=== PATIENT | female | born 1945 | race Caucasian/White ===

== ENCOUNTER 2016-09-26 20:45 | Outpatient (CLI) | payer MEDICARE | END 2016-09-27 06:35 | disposition home or self-care (01) | LOC: SLEEP 20:45 | PROVIDERS: ATTEND Nurse Practitioner Family | DX: G47.50 Parasomnia, unspecified (principal); G47.10 Hypersomnia, unspecified | CPT/HCPCS: 95810 ==

== ENCOUNTER → 2018-06-30 | Outpatient (CLI) | payer MEDICARE, OTHER | LOC: CARD 08:22 | PROVIDERS: ATTEND Internal Medicine Cardiovascular Disease | DX: I51.81 Takotsubo syndrome (principal) | CPT/HCPCS: 93306 ==

== ENCOUNTER 2019-10-18 23:00 | Inpatient (IN) | payer MEDICARE, OTHER ==
[~2019-10-18] VITALS: Ht 160 cm; Wt 75.7 kg
[2019-10-19] VITALS (19 sets, daily range): BP systolic 88–178; BP diastolic 48–100
--- NOTE | 2019-10-19 00:50 | NUR ---
CARDIZEM RUNNING FROM EMS AT 10MG/HR AND AMIO RUNNING AT 33 ML/HR ALSO CONTINUED FROM EMS.
--- NOTE | 2019-10-19 00:50 | NUR ---
RITA FRANCISCACRYSTAL admitted to room CU11-1, with an admitting diagnosis of A-FIB WITH RVR , on 10/19/19 from [facility] via EMS, accompanied by EMS STAFF. RITA NELSON introduced to surroundings, call light, bed controls, phone, TV, temperature control, lights, meal times, smoking policy, visitor policy, side rail policy, bathrooms and showers. Patient Rights given to patient in the handbook.RITA NELSON verbalizes understanding that [facility] is not responsible for the loss or damage to any personal effects or valuables that are kept in the patients posession during their hospitalization. RITA NELSON verbalizes understanding of Interdisciplinary Patient Education. Patient and/or family were informed about the Rapid Response Team and its purpose.
[2019-10-19] MEDS ORDERED: diphenhydrAMINE 25 MG TAB (BENADRYL) PO PRN (01:45)
[2019-10-19] MEDS ORDERED: fentaNYL INJECTION 100 MCG/2 ML AMP IVP PRN (01:45)
[2019-10-19] MEDS ORDERED: polyethylene glycoL POWDER 17 GM (MIRALAX) PACK PO PRN (01:45)
[2019-10-19] MEDS ORDERED: ACETAMINOPHEN 325 MG TABLET PO PRN (01:45)
[2019-10-19] MEDS ORDERED: guaiFENesin/DM (ROBITUSSIN DM) 10 ML UDC PO PRN (01:45)
[2019-10-19] MEDS ORDERED: ONDANSETRON 4 MG/2 ML (SDV) Z0FRAN IVP PRN (01:45)
[2019-10-19] MEDS ORDERED: MELATONIN 3 MG TABLET PO PRN (01:45)
[2019-10-19] MEDS ORDERED: dilTIAZem DRIP PRE-MIX 125 ML IV SCH (01:45)
[2019-10-19] MEDS ORDERED: DOCUSATE SODIUM 100 MG (COLACE) CAP PO PRN (01:45)
[2019-10-19] MEDS ORDERED: ALPRAZolam 0.25 MG (XANAX) TAB PO PRN (01:45)
[2019-10-19] MEDS ORDERED: AMIODARONE INJECTION 450 MG in D5W IV SOLUTION (EXCEL) 250 ML IV SCH (01:45)
--- NOTE | 2019-10-19 02:30 | NUR ---
0230-TURNED CARDIZEM OFF AT THIS TIME D/T BRADYCARDIA. HEART RATE IN THE 50'S. AMIO REMAINS RUNNING AT 33 ML/HR 030-CALLED DR. SHAW AND INFORMED HIM THAT CARDIZEM HAD ALREADY BEEN TURNED OFF AND THAT PATIENT'S HEART RATE WAS DROPPING INTO THE 40'S WITH LAST BP OF 94/50 AND THAT PATIENT'S CURRENT RHYTHM IS SINUS ARRHYTHMIA. RECEIVED ORDER TO D/C AMIO ALSO.
[2019-10-19 03:27] LABS: BASOPHILS % (AUTO) 1 % (0-10); EOSINOPHILS # (AUTO) 0.3 10^3/uL (0.0-0.3); EOSINOPHILS % (AUTO) 4 % (0-10); HEMATOCRIT 38 % (35-52); HEMOGLOBIN 12.6 G/DL (11.5-16.0); LYMPHOCYTES # (AUTO) 2.6 X 10^3 (1.0-4.0); LYMPHOCYTES % (AUTO) 33 % (12-44); MEAN CORPUSCULAR HEMOGLOBIN 31 PG (25-34); MEAN CORPUSCULAR HGB CONC 33 G/DL (32-36); MEAN CORPUSCULAR VOLUME 93 FL (80-99); MEAN PLATELET VOLUME 12.1 FL (7.4-10.4); MONOCYTES # (AUTO) 0.8 X 10^3 (0.0-1.0); MONOCYTES % (AUTO) 10 % (0-12); NEUTROPHILS # (AUTO) 4.1 X 10^3 (1.8-7.8); NEUTROPHILS % (AUTO) 53 % (42-75); PLATELET COUNT 180 10^3/uL (130-400); RED CELL DISTRIBUTION WIDTH 13.8 % (10.0-14.5); WHITE BLOOD COUNT 7.8 10^3/uL (4.3-11.0)
[2019-10-19 03:49] LABS: BUN/CREATININE RATIO 18; CALCIUM 8.8 MG/DL (8.5-10.1); CARBON DIOXIDE 20 MMOL/L (21-32); CHLORIDE 108 MMOL/L (98-107); CREATININE SERUM 0.85 MG/DL (0.60-1.30); GFR ESTIMATED > 60; GLUCOSE 131 MG/DL (70-105); PHOSPHORUS 4.3 MG/DL (2.3-4.7); POTASSIUM 3.7 MMOL/L (3.6-5.0); SODIUM 141 MMOL/L (135-145)
--- NOTE | 2019-10-19 05:20 | Pulmonary Consultation ---
History of Present Illness History of Present Illness Date Seen by Provider: Oct 19, 2019 Time Seen by Provider: 05:19 Date of Admission Allergies and Home Medications Allergies Coded Allergies: No Known Drug Allergies (Unverified , 10/19/19) Past Gsineiz-Nrntue-Edczte Hx Patient Social History Alcohol Use: Denies Use Recreational Drug Use: No Smoking Status: Never a Smoker Recent Foreign Travel: No Contact w/Someone Who Travel: No Recent Infectious Disease Expo: No Recent Hopitalizations: No Seasonal Allergies Seasonal Allergies: No Past Medical History Surgeries: Yes Respiratory: No Cardiac: Yes Neurological: No Genitourinary: No Gastrointestinal: Yes Hiatal Hernia Musculoskeletal: No Endocrine: No HEENT: No Cancer: No Psychosocial: No Integumentary: No Blood Disorders: No Family Medical History Cardiovascular disease 19 FATHER G8 SISTER Hypercholesterolemia 19 FATHER G8 SISTER Hypertension 19 FATHER G8 SISTER Review of Systems Time Seen by Provider: 05:20 Sepsis Event Evaluation Height, Weight, BMI Height: '" Weight: lbs. oz. kg; 29.57 BMI Method: Exam Exam Vital Signs Date Time Temp Pulse Resp B/P (MAP) Pulse Ox O2 Delivery O2 Flow Rate FiO2 10/19/19 05:00 48 94/53 (67) 97 Room Air 10/19/19 04:00 50 12 102/71 (81) 94 Room Air 10/19/19 03:30 48 33 105/62 (76) 97 Room Air 10/19/19 03:00 50 12 94/50 (65) 94 Room Air 10/19/19 02:45 51 11 88/53 (65) 95 Room Air 10/19/19 02:30 56 14 94/52 (66) 94 Room Air 10/19/19 02:15 54 14 96/61 (73) 94 Room Air 10/19/19 02:00 52 12 99/48 (65) 94 Room Air 10/19/19 01:45 61 16 105/79 (88) 94 Room Air 10/19/19 01:30 64 15 102/59 (73) 93 Room Air 10/19/19 01:18 72 14 113/69 (84) 96 Room Air 10/19/19 00:58 36.5 63 113/55 (74) Room Air 10/19/19 00:50 95 Room Air I & O 10/19/19 07:00 Intake Total 0 ml Output Total 350 ml Balance -350 ml Height & Weight Height: '" Weight: lbs. oz. kg; 29.57 BMI Method: Results Lab Laboratory Tests 10/19/19 03:06 Assessment/Plan Assessment/Plan Afib RVR - No sinus bradycardia -Cardizem and ammio gtt are off -Cardiology is following ANGELIKA BENDER DO Oct 19, 2019 05:20
--- NOTE | 2019-10-19 05:56 | Diagnostic Imaging Report ---
EXAMINATION: Portable erect AP chest at 3:43 AM INDICATION: Atrial fibrillation The heart size is within normal limits and stable when compared to 10/18/2019. The lungs are clear. There is no evidence for failure, pneumonia or for a pleural effusion. The mediastinum is not widened. The osseous structures are intact. IMPRESSION: Stable chest. There has been no adverse change since the prior exam. Dictated by: Dictated on workstation # [id number]
[2019-10-19] MEDS ORDERED: POTASSIUM CL 10MEQ/50ML IVPB 50 ML IV SCH (06:00)
[2019-10-19] MEDS ORDERED: MAGNESIUM 1 GM/100 ML IVPB 100 ML IV SCH (06:00)
[2019-10-19] MEDS ORDERED: KCL 20 MEQ TAB (K-DUR) PO SCH (06:00)
[2019-10-19] MEDS ORDERED: APIXABAN 5 MG (ELIQUIS) TABLET PO SCH (09:00)
[2019-10-19] MEDS ORDERED: REGADENOSON 0.4 MG/5 ML SYR (LEXISCAN) IV ONE ×2 (10:15→10:59)
--- NOTE | 2019-10-19 10:23 | Consultation-Cardiology ---
HPI-Cardiology Cardiology Consultation: Date of Consultation 10/19/19 Date of Admission Attending Physician Mela Martinez DO Admitting Physician Rafa Ruelas DO Consulting Physician Linda PERALES MD HPI: Time Seen by a Provider: 10:00 Chief Complaint: Palpitations This is a 73-year-old lady who presented to [facility] with complains of palpitations and shortness of breath. Palpitations started approximately 9 p.m. last night. Initial EKG showed atrial fibrillation with rapid ventricular rate. She was started on Cardizem infusion. She was given Eliquis 5 mg twice a day. I spoke to the health care provider at [facility] last night and advised starting amiodarone infusion. The patient was subsequently transferred to our hospital. 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 The patient denies any past medical history. She has had and hysterectomy. No cardiac history. Denies diabetes and hypertension. Denies active smoking. Father had coronary artery disease. She's been having brief palpitations for a few weeks. She did not seek medical attention. No other past medical history. Review of Systems-Cardiology Review of Systems Constitutional: As described under HPI; No As described under HPI, No no symptoms reported, No chills, No fever, No lightheadedness Eyes: No As described under HPI, No no symptoms reported, No blindness, No blurred vision, No contact lenses, No drainage, No decreased acuity, No foreign body sensation, No pain, No vision change Ears/Nose/Throat: No As described under HPI, No no symptoms reported, No chronic hearing loss, No ear discharge, No ear pain, No nasal drainage, No ulcerations Respiratory: No no symptoms reported; As described under HPI; No As described under HPI, No cough, No orthopnea; shortness of breath; No SOB with excertion Cardiovascular: No no symptoms reported; As described under HPI; No As described under HPI, No chest pain, No edema, No irregular heart rate, No lightheadedness; palpitations Gastrointestinal: No no symptoms reported, No As described under HPI, No abdomen distended, No abdominal pain, No blood streaked bowels, No constipation, No diarrhea, No nausea, No vomiting, No stool coloration changes Genitourinary: No As described under HPI, No burning, No dysuria, No discharge, No frequency, No flank pain, No hematuria, No urgency : Yes : No Skin: No rash, No skin related problems, No ulcerations Psychiatric/Neurological: No anxiety, No depression, No seizure, No focal weakness, No syncope Hematologic: No bleeding abnormalities ZZT-Nvrjzy-Mmuxmn Hx Patient Social History Alcohol Use: Denies Use Recreational Drug Use: No Smoking Status: Never a Smoker Recent Foreign Travel: No Recent Infectious Disease Expo: No Physical Abuse Screen: No Sexual Abuse: No Past Medical History PMH As described under Assessment. Family Medical History Family History: Cardiovascular disease 19 FATHER G8 SISTER Hypercholesterolemia 19 FATHER G8 SISTER Hypertension 19 FATHER G8 SISTER Allergies and Home Medications Allergies Coded Allergies: No Known Drug Allergies (Unverified , 10/19/19) Home Medications No Active Prescriptions or Reported Meds Patient Home Medication List Home Medication List Reviewed: Yes Physical Exam-Cardiology Physical Exam Vital Signs/I&O 10/19/19 10/19/19 10/19/19 10/19/19 00:50 00:58 01:18 01:30 Temp 36.5 Pulse 63 72 64 Resp 14 15 B/P (MAP) 113/55 (74) 113/69 (84) 102/59 (73) Pulse Ox 95 96 93 O2 Delivery Room Air Room Air Room Air Room Air 10/19/19 10/19/19 10/19/19 10/19/19 01:45 02:00 02:15 02:30 Pulse 61 52 54 56 Resp 16 12 14 14 B/P (MAP) 105/79 (88) 99/48 (65) 96/61 (73) 94/52 (66) Pulse Ox 94 94 94 94 O2 Delivery Room Air Room Air Room Air Room Air 10/19/19 10/19/19 10/19/19 10/19/19 02:45 03:00 03:30 04:00 Pulse 51 50 48 Resp 11 12 33 B/P (MAP) 88/53 (65) 94/50 (65) 105/62 (76) Pulse Ox 95 94 97 97 O2 Delivery Room Air Room Air Room Air Room Air 10/19/19 10/19/19 10/19/19 10/19/19 04:00 05:00 06:00 06:40 Pulse 50 48 55 46 Resp 12 13 B/P (MAP) 102/71 (81) 94/53 (67) 106/79 (88) Pulse Ox 94 97 97 O2 Delivery Room Air Room Air Room Air 10/19/19 10/19/19 10/19/19 10/19/19 07:00 07:10 07:45 08:00 Temp 36.6 Pulse 53 54 Resp 14 28 B/P (MAP) 115/65 (82) 131/78 (95) Pulse Ox 95 98 97 O2 Delivery Room Air Room Air Room Air 10/19/19 10/19/19 10/19/19 09:00 11:02 11:05 Pulse 52 60 72 Resp 36 18 18 B/P (MAP) 118/62 (80) 178/84 (115) 140/100 (113) Pulse Ox 95 97 97 O2 Delivery Room Air Room Air Room Air Capillary Refill : Constitutional: appears stated age, AAO x 3; No apparent distress; well- developed, well-nourished HEENT: PERRL; No discharge; hearing is well preserved, oral hygience is good; No ulceration, No xanthelasmas are seen Neck: No carotid bruit; carotid pulses are 2 + bilaterally Respiratory: chest is bilaterally symmetric, lungs clear to auscultation; No crackles, No rhonchi, No stridor, No wheezing, No pleural rub Cardiovascular: regular rate-rhythm, bradycardia, S1 and S2; No systolic murmur Gastrointestinal: soft, audible bowel sounds; No spleenomegaly Rectal: deferred Extremities: normal range of motion, non-tender, normal inspection; No clubbing, No cyanosis; no lower extremity edema bilateral; No significant edema Neurologic/Psychiatric: no motor/sensory deficits, alert, normal mood/affect, oriented x 3, power is 5/5 both on sides Skin: normal color, warm/dry; No rash, No ulcerations Data Review Labs Laboratory Tests 10/19/19 03:06: White Blood Count 7.8, Red Blood Count 4.08L, Hemoglobin 12.6, Hematocrit 38, Mean Corpuscular Volume 93, Mean Corpuscular Hemoglobin 31, Mean Corpuscular Hemoglobin Concent 33, Red Cell Distribution Width 13.8, Platelet Count 180, Mean Platelet Volume 12.1H, Neutrophils (%) (Auto) 53, Lymphocytes (%) (Auto) 33, Monocytes (%) (Auto) 10, Eosinophils (%) (Auto) 4, Basophils (%) (Auto) 1, Neutrophils # (Auto) 4.1, Lymphocytes # (Auto) 2.6, Monocytes # (Auto) 0.8, Eosinophils # (Auto) 0.3, Basophils # (Auto) 0.0, Sodium Level 141, Potassium Level 3.7, Chloride Level 108H, Carbon Dioxide Level 20L, Anion Gap 13, Blood Urea Nitrogen 15, Creatinine 0.85, Estimat Glomerular Filtration Rate > 60, BUN/Creatinine Ratio 18, Glucose Level 131H, Calcium Level 8.8, Phosphorus Level 4.3, Magnesium Level 2.0 ECG Impression ECG Initial ECG Rhythm: S.Johnny A/P-Cardiology Assessment/Admission Diagnosis New onset paroxysmal atrial fibrillation with RVR Plan I discussed at length with the patient about pathophysiology of atrial fibrillation, stroke prevention, rate versus rhythm control, sleep apnea testing , cardiac testing with echocardiogram and nuclear stress testing to rule out CAD in case we want to start class IC antiarrhythmic agents. I briefly discussed implantable loop recorder/external monitor and briefly discussed ablation as well. Patient has a CHADVASC of 2 due to gender and age over 65. Therefore oral anticoagulation is superior to aspirin alone. I'll start Eliquis 5 mg twice a day. I discussed at length about the risk of bleeding including fatal bleeding. However the risk of stroke is around 4 percent a year. We will therefore proceed with oral anticoagulation. Sinus bradycardia after cardioversion. Therefore Cardizem and amiodarone was discontinued. We will likely start multaq as an outpatient. We will request sleep apnea testing as well as nuclear stress testing. Echocardiogram done today showed normal LV function with mild to moderate diastolic dysfunction with no valvular heart disease. We will arrange for a 30 day event monitor on discharge. I'll follow-up in 2 weeks. Thank you for your consultation. Please call me if you have any questions. Isaías Perales MD, FACP, FACC, FSCAI, FHRS, CCDS Interventional Cardiology Cardiac Electrophysiology Vascular Medicine and Endovascular Interventions Clinical Quality Measures DVT/VTE Risk/Contraindication: Risk Factor Score Per Nursin RFS Level Per Nursing on Admit: 2=Moderate Linda PERALES MD Oct 19, 2019 10:23
--- NOTE | 2019-10-19 10:26 | NUR ---
SPOKE WITH PT AND HER TO COMPLETE THE MED REC PT DENIES TAKING ANY PRESCRIPTION OR OTC MEDICATIONS I DID UPDATE HER PREFERRED PHARMACY
[2019-10-19] MEDS ORDERED: CATHETER FLUSH 10 ML SYR IV PRN (10:45)
--- NOTE | 2019-10-19 12:04 | NUR ---
THIS NURSE NOTIFIED DR SHAW PT IS BACK FROM HER STRESS TEST. DR SHAW SAID PT MAY GO HOME AND TO F/U IN 2 WEEKS.
--- NOTE | 2019-10-19 12:19 | NUR ---
THIS NURSE NOTIFIED DR DARNELL SHAW SAID PT MAY GO HOME. PT WILL NEED A SCRIPT FOR ELIQUIS BID AND DR SHAW WROTE FOR A HOME MONITOR.
[2019-10-19] MEDS ORDERED: APIX5TAB PO (12:21)
--- NOTE | 2019-10-19 12:56 | Discharge Summary ---
Discharge Summary Hospital Course Was the Problem List Reviewed?: Yes Problems/Dx: (1) A-fib Status: Acute Qualifiers: Qualified Codes: I48.0 - Paroxysmal atrial fibrillation Hospital Course Date of Admission: Oct 19, 2019 at 00:51 Admission Diagnosis : Paroxysmal atrial fibrillation with rapid ventricular response Family Physician/Provider: Rafa Ruelas DO Date of Discharge: 10/19/19 Discharge Diagnosis: Paroxysmal atrial fibrillation with rapid ventricular response Hospital Course: Angelica Quinn is a 73-year-old female with no known past medical history who presented with palpitations and was admitted with paroxysmal atrial fibrillation with rapid ventricular response. She was started on IV Cardizem and amiodarone and quickly converted to sinus bradycardia. She was started on Eliquis for stroke prophylaxis. She was evaluated by cardiology and will follow up with him as an outpatient. She should follow-up with her primary care physician in a couple weeks. Labs and Pending Lab Test: Laboratory Tests 10/19/19 03:06: White Blood Count 7.8, Red Blood Count 4.08L, Hemoglobin 12.6, Hematocrit 38, Mean Corpuscular Volume 93, Mean Corpuscular Hemoglobin 31, Mean Corpuscular Hemoglobin Concent 33, Red Cell Distribution Width 13.8, Platelet Count 180, Mean Platelet Volume 12.1H, Neutrophils (%) (Auto) 53, Lymphocytes (%) (Auto) 33, Monocytes (%) (Auto) 10, Eosinophils (%) (Auto) 4, Basophils (%) (Auto) 1, Neutrophils # (Auto) 4.1, Lymphocytes # (Auto) 2.6, Monocytes # (Auto) 0.8, Eo sinophils # (Auto) 0.3, Basophils # (Auto) 0.0, Sodium Level 141, Potassium Level 3.7, Chloride Level 108H, Carbon Dioxide Level 20L, Anion Gap 13, Blood Urea Nitrogen 15, Creatinine 0.85, Estimat Glomerular Filtration Rate > 60, BUN/Creatinine Ratio 18, Glucose Level 131H, Calcium Level 8.8, Phosphorus Level 4.3, Magnesium Level 2.0 Home Meds Active Eliquis (Apixaban) 5 Mg Tablet 5 Mg PO BID 90 Days Assessment/Pt Instructions Take medications as prescribed. Begin taking Eliquis for stroke prophylaxis. Follow up with cardiology as scheduled. Follow-up with your primary care provider in a couple weeks. Discharge Planning: <30 minutes discharge planning Discharge Instructions Discharge Diet: No Restrictions Activity as Tolerated: Yes Pneumonia Vaccine Order Indica: Yes Discharge Physical Examination Vital Signs Vital Signs Date Time Temp Pulse Resp B/P (MAP) Pulse Ox O2 Delivery O2 Flow Rate FiO2 10/19/19 12:17 98 Room Air 10/19/19 11:05 72 18 140/100 (113) 10/19/19 07:10 36.6 General Appearance: No Apparent Distress, WD/WN HEENT: PERRL/EOMI, Pharynx Normal Respiratory: Lungs Clear, Normal Breath Sounds, No Respiratory Distress Cardiovascular: No Edema, No Murmur, Bradycardia Gastrointestinal: Normal Bowel Sounds, Non Tender, Soft Extremity: Normal Inspection, Non Tender, No Pedal Edema Skin: Normal Color, Warm/Dry Neurologic/Psychiatric: Alert, Oriented x3, No Motor/Sensory Deficits, Normal Mood/Affect Allergies: Coded Allergies: No Known Drug Allergies (Unverified , 10/19/19) Copy Copies To 1: RAFA RUELAS DO Discharge Summary Date of Admission Oct 19, 2019 at 00:51 Date of Discharge Discharge Date: Oct 19, 2019 Discharge Time: 09:05 Admission Diagnosis Paroxysmal atrial fibrillation with rapid ventricular response Consults/Procedures Consulations Cardiology Discharge Diagnosis (1) A-fib Status: Acute Qualifiers: Qualified Codes: I48.0 - Paroxysmal atrial fibrillation Clinical Quality Measures DVT/VTE Risk/Contraindication: Risk Factor Score Per Nursin RFS Level Per Nursing on Admit: 2=Moderate MIGNON PATRICK MD Oct 19, 2019 12:56
--- NOTE | 2019-10-19 13:25 | NUR ---
THIS NURSE EDUCATED PT AND ON DISCHARGE INSTRUCTIONS. PT AND STATED UNDERSTANDING.
--- NOTE | 2019-10-19 13:25 | Cardiology Stress Test Report ---
Stress Test Report Type of NM Stress Test: Test Type: LEXISCAN 0.4MG/5ML Date of Procedure/Referring: Date of Procedure: Oct 19, 2019 PCP Mela Martinez DO Admitting Physician Rafa Ruelas DO Indications: Paroxysmal atrial fibrillation Baseline Heart Rate: 58 Baseline Blood Pressure: Blood Pressure Systolic: 140 Blood Pressure Diastolic: 100 Baseline EKG: Baseline EKG: sinus bradycardia Summary & Conclusion: Summary: The patient was brought to the stress lab after informed consent was taken. Stress test was performed according to the Lexiscan protocol. 0.4 mg of IV Lexiscan was given. Low-grade exercise was performed. Baseline EKG showed sinus rhythm at 58 bpm, blood pressure 178/84 mmHg. Maximum heart rate 72 bpm and blood pressure 191/93 mmHg. Patient did not have any chest pain, arrhythmias or ST segment changes during the stress test. 10.83 mCi of Myoview were given for rest imaging and 28.2 mCi of Myoview given for stress imaging. Transient ischemic dilatation score 1.11, EF 75 percent. Normal wall motion. Normal myocardial perfusion imaging during rest and stress. Conclusion: Pharmacological stress test was negative for ischemia. Normal LV function with no wall motion abnormalities. Normal myocardial perfusion imaging during rest and stress. Linda SHAW MD Oct 19, 2019 13:25
== END 2019-10-19 13:33 | disposition home or self-care (01) | DRG 310 ==
LOC: ICU 10-19 00:51
PROVIDERS: ADMIT Internal Medicine; ATTEND Internal Medicine
DX: I48.0 Paroxysmal atrial fibrillation (principal); K44.9 Diaphragmatic hernia without obstruction or gangrene; Z90.710 Acquired absence of both cervix and uterus
CPT/HCPCS: 36415; 71045; 78452; 80048; 83735; 84100; 85025; 87081; 93005; 93017; 93306

== ENCOUNTER 2019-10-19 13:35 | Outpatient (RCR) | payer MEDICARE, OTHER ==
[~2019-10-19 13:35] MED LIST: APIX5TAB PO
== END 2020-01-17 | disposition home or self-care (01) ==
LOC: CARD 13:35
PROVIDERS: ATTEND Internal Medicine Interventional Cardiology
DX: I48.0 Paroxysmal atrial fibrillation (principal)

== ENCOUNTER → 2020-09-11 | Day surgery (SDC) | payer MEDICARE, OTHER ==
[~2020-09-11] VITALS: Ht 160 cm; Wt 75.7 kg
[~2020-09-11] MED LIST changes: +LIDOCAINE 1% INJ 20 ML 20 ML VIAL ONE
[2020-09-11 09:17] VITALS: BP 186/65
--- NOTE | 2020-09-11 09:44 | Implantation of Loop Monitor ---
Implant of Loop Monitior IMPLANTATION OF LOOP MONITOR REPORT DATE OF PROCEDURE: 09/11/20 PREOP DIAGNOSIS: Paroxysmal atrial fibrillation POSTOP DIAGNOSIS: Paroxysmal atrial fibrillation PROCEDURE DETAILS: The patient is a 74 female with history of paroxysmal atrial fibrillation requiring long-term surveillance. Therefore implantable loop recorder was discussed and agreed with the patient. Informed consent was taken. All risks and complications were discussed at length. The patient was draped and prepped in the usual sterile fashion. Local anesthesia was lidocaine, which was given in the substernal area close to the 4th intercostal space. Loop monitor [employer] with serial number [id number] was implanted according to the protocol. Steri- Strips were placed at the end of the procedure. There were no complications and the patient tolerated the procedure well. ANESTHESIA: Local anesthesia with lidocaine. COMPLICATIONS: None CONTRAST/FLUOROSCOPY: None CONCLUSION: Successful implantation of loop monitor with no complication FINAL DIAGNOSIS: Paroxysmal atrial fibrillation Palpitation Hypertension NICK KENNY MD September 11, 2020 9:44 am
== END ==
LOC: CATH 08:43
PROVIDERS: ATTEND Internal Medicine Cardiovascular Disease
DX: I48.0 Paroxysmal atrial fibrillation (principal); G47.33 Obstructive sleep apnea (adult) (pediatric); R00.1 Bradycardia, unspecified; I10 Essential (primary) hypertension; Z79.82 Long term (current) use of aspirin; Z79.01 Long term (current) use of anticoagulants; R00.2 Palpitations
CPT/HCPCS: 33285

== ENCOUNTER 2021-04-21 07:36 | Inpatient (IN) | payer MEDICARE ==
[~2021-04-21] VITALS: Ht 160 cm; Wt 75.8 kg
[~2021-04-21 07:36] MED LIST changes: -LIDOCAINE 1% INJ 20 ML 20 ML VIAL ONE
[2021-04-21] MEDS ORDERED: MELATONIN 3 MG TABLET PO PRN (08:45)
[2021-04-21] MEDS ORDERED: CALCIUM CARBONATE 500 MG (TUMS) TAB.CHEW PO PRN (08:45)
[2021-04-21] MEDS ORDERED: morphine INJ 10 MG/ML 1ML (SYR OR VIAL) IVP PRN (08:45)
[2021-04-21] MEDS ORDERED: ALPRAZolam 0.25 MG (XANAX) TAB PO PRN (08:45)
[2021-04-21] MEDS ORDERED: NS IV 1000 ML 1,000 ML IV SCH (08:45)
[2021-04-21] MEDS ORDERED: diphenhydrAMINE 25 MG TAB (BENADRYL) PO PRN (08:45)
[2021-04-21] MEDS ORDERED: HYDROcodone/APAP 5 MG/325 MG (LORTAB) TAB PO PRN (08:45)
[2021-04-21] MEDS ORDERED: LOPERAMIDE 2 MG (IMODIUM) TABLET PO PRN (08:45)
[2021-04-21] MEDS ORDERED: ONDANSETRON 4 MG/2 ML (SDV) Z0FRAN IVP PRN (08:45)
[2021-04-21] MEDS ORDERED: DOCUSATE SODIUM 100 MG (COLACE) CAP PO PRN (08:45)
[2021-04-21] MEDS ORDERED: NS IV 1000 ML 0 ML ONE (09:30)
[2021-04-21 09:39] VITALS: BP 140/71
[2021-04-21] MEDS ORDERED: NS IV 1000 ML 1,000 ML ONE (09:41)
[2021-04-21] MEDS ORDERED: LIDOCAINE 1% INJ 20 ML 20 ML VIAL ONE (09:41)
[2021-04-21] MEDS ORDERED: HEParin (CATH LAB) 2,000 ML IV ONE (09:41)
[2021-04-21] MEDS ORDERED: MIDAZOLAM 5 MG/5 ML (VERSED) VIAL ONE (09:42)
[2021-04-21] MEDS ORDERED: fentaNYL INJ 100 MCG/2 ML AMP ONE (09:42)
[2021-04-21] MEDS ORDERED: VERAPAMIL 5 MG/2 ML (CALAN) VIAL IV ONE (09:42)
[2021-04-21] MEDS ORDERED: HEParin 1000 UNIT/ML (10ML VIAL) FOR BOLUS ONE (09:43)
[2021-04-21] MEDS ORDERED: NITRO DRIP 25000 MCG/D5W 250 ML IV ONE (09:43)
--- NOTE | 2021-04-21 09:49 | History & Physical ---
History of Present Illness HPI/Chief Complaint CC: Chest pain HPI: This is a clinic Pt of [facility] with a PMH of chronic AFIB managed by Dr. Cherry, who presents with fatigue the past two weeks to [facility] but chest pain that worsened this morning, she was found to have an elevated Troponin, she was transferred over from [facility] to [facility]. I placed acute orders in and Dr. Cherry performed cardiac catch and placed a stent in the LAD. She currently is doing very well. Source: patient, family, RN/MD, old records Exam Limitations: no limitations Date Seen 04/21/21 Time Seen by a Provider: 11:00 Attending Physician Mela Martinez DO PCP Rafa Ruelas DO Referring Physician Date of Admission Apr 21, 2021 at 09:18 Home Medications & Allergies Home Medications Reviewed patient Home Medication Reconciliation performed by pharmacy medication reconciliations agriculture laboratory technician and/or nursing. Patients Allergies have been reviewed. Allergies Allergies Coded Allergies No Known Drug Allergies (Unverified10/19/19) Past Uhhclob-Moqezo-Sliwea Hx Past Med/Social Hx: Reviewed Nursing Past Med/Soc Hx, Reviewed and Corrections made Patient Social History Marrital Status: Employed/Student: employed Alcohol Use: Denies Use Smoking Status: Never a Smoker Recent Hopitalizations: No Immunizations Up To Date Tetanus Booster (TDap): Unknown Seasonal Allergies Seasonal Allergies: No Past Medical History Cardiac: Atrial Fibrillation, Hypertension Gastrointestinal: Hiatal Hernia History of Blood Disorders: No Family History Cardiovascular disease 19 FATHER G8 SISTER Hypercholesterolemia 19 FATHER G8 SISTER Hypertension 19 FATHER G8 SISTER Review of Systems Constitutional: see HPI EENTM: no symptoms reported Respiratory: dyspnea on exertion Cardiovascular: chest pain Gastrointestinal: no symptoms reported Genitourinary: no symptoms reported Musculoskeletal: no symptoms reported Skin: no symptoms reported Psychiatric/Neurological: No Symptoms Reported All Other Systems Reviewed Negative Unless Noted: Yes Physical Exam Physical Exam Vital Signs Vital Signs - First Documented 04/21/21 04/21/21 09:34 09:39 Temp 36.3 Pulse 48 Resp 19 B/P (MAP) 140/71 (94) Pulse Ox 97 O2 Delivery Room Air Capillary Refill : Height, Weight, BMI Height: '" Weight: lbs. oz. kg; 29.60 BMI Method: General Appearance: No Apparent Distress, WD/WN Eyes: Bilateral Eye Normal Inspection, Bilateral Eye PERRL HEENT: PERRL/EOMI, Normal ENT Inspection, Pharynx Normal Neck: Full Range of Motion, Normal Inspection, Non Tender, Supple, Carotid Bruit Respiratory: Chest Non Tender, Lungs Clear, Normal Breath Sounds, No Accessory Muscle Use, No Respiratory Distress Cardiovascular: Regular Rate, Rhythm, No Edema, No Gallop, No JVD, No Murmur, N ormal Peripheral Pulses Gastrointestinal: Normal Bowel Sounds, No Organomegaly, No Pulsatile Mass, Non Tender, Soft Back: Normal Inspection, No CVA Tenderness, No Vertebral Tenderness Extremity: Normal Capillary Refill, Normal Inspection, Normal Range of Motion, Non Tender, No Calf Tenderness, No Pedal Edema Neurologic/Psychiatric: Alert, Oriented x3, No Motor/Sensory Deficits, Normal Mood/Affect Skin: Normal Color, Warm/Dry Lymphatic: No Adenopathy Results Results/Procedures Labs Laboratory Tests 04/21/21 13:08 Patient resulted labs reviewed. Assessment/Plan Admission Diagnosis Assessment: Chest pain Non-ST elevation NM Chronic atrial fibrillation on anticoagulation Hypertension Hyperlipidemia Plan: Stent placed appreciate Dr. Cherry Oral anticoagulation restart per cardiology Check lipid profile Statin Plavix Admission Status: Inpatient Order (span 2 midnights) Reason for Inpatient Admission: Non-ST elevation NM Diagnosis/Problems Diagnosis/Problems (1) NSTEMI (non-ST elevated myocardial infarction) (2) A-fib Status: MELA Ordonez DO Apr 21, 2021 09:49
--- NOTE | 2021-04-21 09:59 | Consultation-Cardiology ---
HPI-Cardiology Cardiology Consultation Date of Consultation 04/21/21 Date of Admission Time Seen by Provider: 09:54 Indication: Chest pain HPI 75-year-old lady with history of paroxysmal atrial fibrillation, hypertension, hyperlipidemia, started to have chest pain, described as dull in nature in the retrosternal area radiated to the back occurred yesterday evening, improved by resting. This morning started another episode of chest pain came into the emergency room, pain improved to a certain degree with nitroglycerin, still having mild active chest pain. No shortness of breath. No palpitation. No syncope or near syncopal episodes. Noted to have elevated troponin level. I was called from [facility] emergency room and accepted the patient for transfer. On my evaluation she still having active chest pain. Home Medications & Allergies Allergies: Coded Allergies: No Known Drug Allergies (Unverified , 10/19/19) Home Medication List Reviewed: Yes TPD-Rypydv-Mrfxhn Hx Patient Social History Marital Status: Recent Hopitalizations: No Have you traveled recently?: No Alcohol Use?: No Immunizations Up To Date Tetanus Booster (TDap): Unknown Past Medical History Discussed below Family Medical History Family History: Cardiovascular disease 19 FATHER G8 SISTER Hypercholesterolemia 19 FATHER G8 SISTER Hypertension 19 FATHER G8 SISTER Review of Systems-General Review of Systems Constitutional: no symptoms reported, see HPI EENTM: see HPI, no symptoms reported Respiratory: no symptoms reported, see HPI Cardiovascular: see HPI, chest pain; No edema, No Hx of Intervention, No palpitations, No syncope, No vascular heart diseas, No other Gastrointestinal: no symptoms reported, see HPI Genitourinary: no symptoms reported, see HPI Musculoskeletal: no symptoms reported, see HPI Skin: no symptoms reported, see HPI Psychiatric/Neurological: No Symptoms Reported, See HPI Reviewed Test Results Reviewed Test Results Lab Lab results from [facility] emergency room were reviewed Physical Exam Physical Exam Vital Signs Vital Signs - First Documented 04/21/21 04/21/21 09:34 09:39 Temp 36.3 Pulse 48 Resp 19 B/P (MAP) 140/71 (94) Pulse Ox 97 O2 Delivery Room Air Capillary Refill : Height, Weight, BMI Height: '" Weight: lbs. oz. kg; 29.60 BMI Method: General Appearance: No Apparent Distress, WD/WN Eyes: Bilateral Eye Normal Inspection, Bilateral Eye PERRL, Bilateral Eye EOMI HEENT: PERRL/EOMI, TMs Normal, Normal ENT Inspection, Pharynx Normal, Moist Mucous Membranes Neck: Full Range of Motion, Normal Inspection, Non Tender, Supple, Carotid Bruit Respiratory: Chest Non Tender, Normal Breath Sounds, No Accessory Muscle Use, No Respiratory Distress Cardiovascular: Regular Rate, Rhythm, No Edema, No Gallop, No JVD, No Murmur, Normal Peripheral Pulses Gastrointestinal: Normal Bowel Sounds, No Organomegaly, No Pulsatile Mass, Non Tender, Soft Back: Normal Inspection, No CVA Tenderness, No Vertebral Tenderness Extremity: Normal Capillary Refill, Normal Inspection, Normal Range of Motion, Non Tender, No Calf Tenderness, No Pedal Edema Neurologic/Psychiatric: Alert, Oriented x3, No Motor/Sensory Deficits, Normal Mood/Affect Skin: Normal Color, Warm/Dry Lymphatic: No Adenopathy A/P-Cardiology Admission Diagnosis Chest pain Non-ST elevation myocardial infarction Paroxysmal atrial fibrillation Hypertension Hyperlipidemia Assessment/Plan Chest pain, non-ST elevation myocardial infarction, still having active chest pain, I am planning to proceed with cardiac catheterization possible PTCA. Paroxysmal atrial fibrillation, had event recorder done in November 2019 showing no significant arrhythmia. Has a Linq implanted with no further episodes of atrial fibrillation noted. Currently doing well. [id number] score of 3, has been maintained on Eliquis. Last dose was taken yesterday evening, received Lovenox in [facility] emergency room Sinus node dysfunction, history of sinus bradycardia with fatigue. Continue to monitor for now Palpitation, reporting improvement, no further episodes were noted. Hypertension, restart home medication monitor blood pressure Hyperlipidemia, intolerant to simvastatin with myalgia, evaluate lipid profile Mild obstructive sleep apnea, did not require CPAP. Has been doing well Echocardiogram done in October 2019 showing normal LV function, EF 55 to 65%, grade 2 diastolic dysfunction, moderate TR, PA pressure 20 mmHg. NICK KENNY MD Apr 21, 2021 09:59
[2021-04-21] MEDS ORDERED: ACETAMINOPHEN 325 MG TABLET PO PRN (10:00)
[2021-04-21] MEDS ORDERED: ENOXAPARIN 80 MG/0.8 ML (LOVENOX) SYR SC SCH (10:00)
[2021-04-21] MEDS ORDERED: FLU QUAD HIGH DOSE 240 MCG/0.7 ML 2021-22 (FLUZONE) IM ONE (10:00)
[2021-04-21] MEDS: polyethylene glycoL POWDER 17 GM (MIRALAX) PACK PO SCH ×2 (10:05→21:00)
[2021-04-21] MEDS: SENNA W/DOCUSATE (SENOKOT S) TABLET PO SCH ×2 (10:05→21:00)
--- NOTE | 2021-04-21 10:09 | Conscious Sedation/ASA ---
Conscious Sedation Pre-Proced Time 10:09 ASA Score 3 For ASA 3 and 4: Consider anesthesia and medical clearance. Also, for patients with a history of failed moderate sedation consider anesthesia. Airway Lungs Heart ASA score ASA 1: a normal healthy patient ASA 2: a patient with a mild systemic disease (mid diabetes, controlled hypertension, obesity x ASA 3: a patient with a severe systemic disease that limits activity (angina, COPD, prior Myocardial infarction) ASA 4: a patient with an incapacitating disease that is a constant threat to life (CHF, renal failure) ASA 5: a moribund patient not expected to survive 24 hrs. (ruptured aneurysm) ASA 6: a declared brain- patient whose organs are being harvested. For emergent operations, add the letter E after the classification Mallampati Classification Grade 3 Sedation Plan Analgesia, Amnesia, Plan communicated to team members, Discussed options with patient/fam, Discussed risks with patient/fam The patient is an appropriate candidate to undergo the planned procedure, sedation, and anesthesia. The patient immediately re-assessed prior to indication. NICK KENNY MD Apr 21, 2021 10:09
[2021-04-21] MEDS ORDERED: CLOPIDOGREL 300 MG (PLAVIX) TABLET PO ONE (10:48)
[2021-04-21] MEDS ORDERED: ASPIRIN 325 MG (5 GR) TABLET ONE (10:48)
--- NOTE | 2021-04-21 10:57 | Cardiac Cath Report ---
Cardiac Cath Report Physician (s)/Top Lift Compresser (s) Physician NICK KENNY MD Pre-Procedure Diagnosis Pre-Procedure Diagnosis: Coronary artery disease Post-Procedure Note Procedure Start Date: Apr 21, 2021 Name of Procedure: Left heart catheterization Primary stenting to the proximal LAD Findings/Procedure Note PROCEDURE NOTE: 75-year-old lady with history of coronary artery disease, admitted with non-ST elevation myocardial infarction, acute chest pain, discussed the management plan recommended cardiac catheterization possible PTCA. After explaining the procedure to the patient, all pros and cons were explained, all questions were answered. The patient signed the consent and then she was placed on the cardiac catheterization laboratory. Groin was prepped SL fashion local anesthesia was used. Sheath placed in the right radial artery, advanced to the left ventricular cavity, left ventriculogram was done, pullback LV to aorta was done, engaged the right and left coronary system and angiogram was done. Patient was noted to have eccentric lesion of severe stenosis in the proximal LAD. Received a total of 6000 units of heparin, EBU 3.5 guide was advanced to the left system and BMW wire was advanced in the LAD and parked distally, primary stenting using 3 x 12 mm keon point stent expanded under 15 bill to 3.1 mm with excellent results. At the end of the procedure the sheath was removed. Vascular band deployed FINDINGS: Hemodynamics LV 92/15, end-diastolic pressure of 15 Aorta 87/46 mean of 62 ANATOMY: Left Main is free of obstructive disease Left Anterior Descending has eccentric lesion in the proximal LAD with severe stenosis, successful primary stenting using keon point stent 3.0 x 12 mm expanded to 3.1 mm under 15 bill with excellent results Left Circumflex has mild disease none obstructive disease Right Coronary Artery has mild to moderate stenosis in the midportion nonobst ructive disease LV Gram was done showing normal left ventricular size and systolic function estimate ejection fraction 60% CONCLUSION: 1. Eccentric severe stenosis in the proximal LAD with successful primary stent ing using keon point stent 3 x 12 mm expanded to 3.1 mm with excellent results 2. Mild to moderate stenosis in the mid right coronary artery, mild disease in the distal circumflex artery otherwise nonobstructive disease 3. Normal left ventricular size and systolic function estimate ejection fraction 60% DISCUSSION AND RECOMMENDATION: Patient was started on aspirin and Plavix, I will stop Eliquis and continue to monitor on loop recorder Anesthesia Type: Conscious Sedation Estimated blood loss (mL): 15 ml Contrast Amount: 77 ml Total Radiation Dose: 766 mGy Post-Procedure Diagnosis Post-operative diagnosis: Non-ST elevation myocardial infarction Coronary artery disease Hypertension Hyperlipidemia NICK KENNY MD Apr 21, 2021 10:57
[2021-04-21] MEDS ORDERED: PATIENT MAY USE OWN MEDS, ALL PO SCH (11:00)
[2021-04-21] MEDS: NS IV 1000 ML 1,000 ML IV SCH ×2 (11:10→22:35)
[2021-04-21] MEDS: meTOprolol TARTRATE 25 MG (LOPRESSOR) TABLET PO SCH ×2 (11:45→20:33)
[2021-04-21 12:00] VITALS: BP 140/73
[2021-04-21 13:02] VITALS: BP 140/71
[2021-04-21] MEDS ORDERED: RT-ALBUTEROL SULF 2.5 MG/3 ML PRE-MIX VIAL INH PRN (13:15)
[2021-04-21 13:32] LABS: BASOPHILS % (AUTO) 1 % (0-10); EOSINOPHILS # (AUTO) 0.1 10^3/uL (0.0-0.3); EOSINOPHILS % (AUTO) 1 % (0-10); HEMATOCRIT 35 % (35-52); HEMOGLOBIN 11.5 g/dL (11.5-16.0); LYMPHOCYTES # (AUTO) 2.6 10^3/uL (1.0-4.0); LYMPHOCYTES % (AUTO) 39 % (12-44); MEAN CORPUSCULAR HEMOGLOBIN 31 pg (25-34); MEAN CORPUSCULAR HGB CONC 33 g/dL (32-36); MEAN CORPUSCULAR VOLUME 94 fL (80-99); MEAN PLATELET VOLUME 12.6 fL (9.0-12.2); MONOCYTES # (AUTO) 0.4 10^3/uL (0.0-1.0); MONOCYTES % (AUTO) 6 % (0-12); NEUTROPHILS # (AUTO) 3.5 10^3/uL (1.8-7.8); NEUTROPHILS % (AUTO) 53 % (42-75); PLATELET COUNT 167 10^3/uL (130-400); WHITE BLOOD COUNT 6.6 10^3/uL (4.3-11.0)
[2021-04-21 14:00] LABS: ALBUMIN 3.5 GM/DL (3.2-4.5); BILIRUBIN,TOTAL 0.5 MG/DL (0.1-1.0); CALCIUM 8.6 MG/DL (8.5-10.1); CREATININE SERUM 0.69 MG/DL (0.60-1.30); POTASSIUM 3.7 MMOL/L (3.6-5.0); TOTAL PROTEIN 6.4 GM/DL (6.4-8.2)
[2021-04-21 16:00] VITALS: BP 130/73
[2021-04-21 20:36] VITALS: BP 118/67
[2021-04-22] VITALS: BP 95/61
[2021-04-22 04:00] VITALS: BP 108/59
[2021-04-22 05:19] LABS: BASOPHILS # (AUTO) 0.1 10^3/uL (0.0-0.1); BASOPHILS % (AUTO) 1 % (0-10); EOSINOPHILS # (AUTO) 0.1 10^3/uL (0.0-0.3); EOSINOPHILS % (AUTO) 3 % (0-10); HEMATOCRIT 34 % (35-52); HEMOGLOBIN 11.1 g/dL (11.5-16.0); LYMPHOCYTES # (AUTO) 1.8 10^3/uL (1.0-4.0); LYMPHOCYTES % (AUTO) 38 % (12-44); MEAN CORPUSCULAR HEMOGLOBIN 31 pg (25-34); MEAN CORPUSCULAR HGB CONC 33 g/dL (32-36); MEAN CORPUSCULAR VOLUME 94 fL (80-99); MEAN PLATELET VOLUME 12.5 fL (9.0-12.2); MONOCYTES # (AUTO) 0.4 10^3/uL (0.0-1.0); MONOCYTES % (AUTO) 9 % (0-12); NEUTROPHILS # (AUTO) 2.2 10^3/uL (1.8-7.8); NEUTROPHILS % (AUTO) 49 % (42-75); PLATELET COUNT 138 10^3/uL (130-400); WHITE BLOOD COUNT 4.6 10^3/uL (4.3-11.0)
[2021-04-22 05:47] LABS: ALBUMIN 3.3 GM/DL (3.2-4.5); BILIRUBIN,TOTAL 0.5 MG/DL (0.1-1.0); CALCIUM 8.5 MG/DL (8.5-10.1); CREATININE SERUM 0.76 MG/DL (0.60-1.30); POTASSIUM 4.3 MMOL/L (3.6-5.0)
[2021-04-22 07:40] VITALS: BP 106/64
[2021-04-22] MEDS: SENNA W/DOCUSATE (SENOKOT S) TABLET PO SCH (08:50)
[2021-04-22] MEDS: polyethylene glycoL POWDER 17 GM (MIRALAX) PACK PO SCH (08:50)
[2021-04-22] MEDS: NS IV 1000 ML 1,000 ML IV SCH (08:51)
--- NOTE | 2021-04-22 08:54 | Cardiology Progress Note ---
Subjective Date Seen by Provider: Apr 22, 2021 Time Seen by Provider: 08:53 Subjective/Events-last exam Patient is laying down in bed, feeling better, her wrist is healing well. No chest pain. Review of Systems General: No Chills, No Night Sweats, No Fatigue, No Malaise, No Appetite, No O ther HEENT: No Head Aches, No Visual Changes, No Eye Pain, No Ear Pain, No Dys phasia, No Sinus Congestion, No Post Nasal Drip, No Sore Throat, No Other Pulmonary: No Dyspnea, No Cough, No Pleuritic Chest Pain, No Other Cardiovascular: No: Chest Pain, Palpitations, Orthopnea, Paroxysmal Noc. Dyspnea, Edema, Lt Headedness, Other Objective-Cardiology Exam Last Set of Vital Signs Vital Signs 04/22/21 07:40 Temp 36.0 Pulse 51 Resp 23 B/P (MAP) 106/64 (78) Pulse Ox 96 O2 Delivery Room Air I&O Intake and Output 04/22/21 00:00 Intake Total 400 ml Balance 400 ml Intake Oral 400 ml # Voids 3 Daily Weight Change No General: Alert, Oriented X3, Cooperative HEENT: Atraumatic, PERRLA Neck: Supple, No JVD, No Thyromegaly Lungs: Clear to Auscultation, Normal Air Movement Heart: Regular Rate, Normal S1, Normal S2, No Murmurs Abdomen: Normal Bowel Sounds, Soft, No Tenderness, No Hepatosplenomegaly, No Masses Extremities: No Clubbing, No Cyanosis, No Edema, Normal Pulses, No Tenderness/Swelling Skin: No Rashes, No Breakdown, No Significant Lesion Neuro: Normal Gait, Normal Speech, Strength at 5/5 X4 Ext, Normal Tone, Sensation Intact Psych/Mental Status: Mental Status NL, Mood NL Results Lab Laboratory Tests 04/21/21 13:08 04/22/21 04:50 A/P-Cardiology Admission Diagnosis Chest pain Non-ST elevation myocardial infarction Paroxysmal atrial fibrillation Hypertension Hyperlipidemia Assessment/Plan Chest pain, non-ST elevation myocardial infarction, still having active chest pain, status post cardiac catheterization and stenting to the LAD Coronary artery disease, cardiac catheterization was carried out showing severe stenosis of the proximal LAD successful stenting using keon point stent 3 x 12 mm expanded to 3.1 mm with excellent results, moderate stenosis in the mid right coronary artery otherwise nonobstructive disease. Paroxysmal atrial fibrillation, had event recorder done in November 2019 showing no significant arrhythmia. Has a Linq implanted with no further episodes of atrial fibrillation noted. Currently doing well. [id number] score of 3, has been maintained on Eliquis. No further episodes of atrial fibrillation were noted, has a loop monitor, I will discontinue Eliquis and maintained on aspirin and Plavix Sinus node dysfunction, history of sinus bradycardia with fatigue, became bradycardic after receiving Lopressor, cannot tolerate beta-blockers. Palpitation, reporting improvement, no further episodes were noted. Hypertension, restart home medication monitor blood pressure Hyperlipidemia, intolerant to simvastatin with myalgia, evaluate lipid profile Mild obstructive sleep apnea, did not require CPAP. Has been doing well Echocardiogram done on April 21, 2021 showing normal LV size and systolic function, ejection fraction 55 to 65%. Okay for discharge and follow-up as an outpatient NICK KENNY MD Apr 22, 2021 08:54
[2021-04-22] MEDS ORDERED: ASPI-1238 PO (08:55)
[2021-04-22] MEDS ORDERED: CLOP75TA28 PO (08:55)
--- NOTE | 2021-04-22 08:56 | Discharge Inst-Post CATH ---
Discharge Inst-CATH/EP Problems Reviewed?: Yes Post Cardiac Cath/EP D/C Inst Follow Up/Plan Appointment with Dr. Cherry's office in 2 to 4 weeks <b>CARDIAC CATH/EP PROCEDURE DISCHARGE INSTRUCTIONS</b> ACTIVITY * Go Home directly and rest. * Limit activity of the leg (or wrist if it was used) for 7 days including aer obics, swimming, jogging, bicycling, etc. * Restrict stair-climbing for 7 days if possible, if not, climb up with your non-cath leg, then bring together on the same step. * Avoid lifting, pushing, pulling or excessive movement of the affected extremi ty for 7 days. * Customary sexual activity may be resumed after 2 days-use caution not to use a position that strains or causes pain to the affected extremity. * No driving for 24 hours. * NO SMOKING. * Avoid straining for bowel movements for 7 days. * Gentle walking on level ground is allowed. * Returning to work will depend on the type of procedure and the results. Your doctor will discuss this with you. CALL YOUR DOCTOR FOR ANY OF THE FOLLOWING: *If bleeding from the puncture site occurs- Apply gentle pressure to site with clean cloth and call your doctor or EMS. * If a knot or lump forms under the skin, increases in size, or causes pain. * If bruising appears to be worsening or moving further down your leg instead of disappearing. * Temperature above 101 F. CARE OF YOUR GROIN INCISION; * Bruising or purple discoloration of the skin near the puncture site is common. * You may shower only, no bathtub bathing for 5 days. Be careful to avoid slipping as your leg may feel stiff. * If a closure device was used on your femoral artery, please see the attached guide regarding care of the device and your leg. * Leave dressing on FOR 24 hours. CARE OF YOUR WRIST INCISION; * Bruising or purple discoloration of the skin near the puncture site is common. * You may shower. * DO NOT submerge wrist. * Leave dressing on FOR 24 hours. NICK CHERRY MD Apr 22, 2021 08:56
[2021-04-22] MEDS ORDERED: PANT40TA2 PO (08:58)
[2021-04-22] MEDS ORDERED: CLOPIDOGREL 75 MG (PLAVIX) TABLET PO SCH (09:00)
[2021-04-22] MEDS ORDERED: ASPIRIN E.C. 81 MG (ECOTRIN) TAB PO SCH (09:00)
--- NOTE | 2021-04-22 09:38 | Discharge Summary ---
Diagnosis/Chief Complaint Date of Admission Apr 21, 2021 at 09:18 Date of Discharge Discharge Date: Apr 22, 2021 Discharge Diagnosis Assessment: Chest pain Non-ST elevation PR Chronic atrial fibrillation on anticoagulation loop recorder showed no evidence of recurrent episodes so we will stop Eliquis Hypertension Hyperlipidemia Plan: Stent placed appreciate Dr. Cherry Oral anticoagulation discontinuation per cardiology Check lipid profile Statin Plavix Discharge Summary Discharge Physical Examination Allergies: Coded Allergies: No Known Drug Allergies (Unverified , 10/19/19) Vitals & I&Os Vital Signs Date Time Temp Pulse Resp B/P (MAP) Pulse Ox O2 Delivery O2 Flow Rate FiO2 04/22/21 11:52 36.1 45 18 119/64 (82) 97 Room Air General Appearance: Alert, Oriented X3, Cooperative Respiratory: Clear to Auscultation Cardiovascular: Regular Rate Psych/Mental Status: Mental Status NL Hospital Course Was the Problem List Reviewed?: Yes Hospital course: Pt had a short hospital course, she was admitted for chest pain and Non-STEMI from [facility]. She underwent cardiac catheterization with a stent placed in LAD. Loop recorder was reviewed, no episodes of AFIB so Eliquis was discontinued so Pt was placed on Plavix and Aspirin at discharge. Labs (last 24 hrs) Laboratory Tests 04/21/21 13:08: White Blood Count 6.6, Red Blood Count 3.70L, Hemoglobin 11.5, Hematocrit 35, Mean Corpuscular Volume 94, Mean Corpuscular Hemoglobin 31, Mean Corpuscular Hemoglobin Concent 33, Red Cell Distribution Width 13.6, Platelet Count 167, Mean Platelet Volume 12.6H, Immature Granulocyte % (Auto) 0, Neutrophils (%) (Auto) 53, Lymphocytes (%) (Auto) 39, Monocytes (%) (Auto) 6, Eosinophils (%) (Auto) 1, Basophils (%) (Auto) 1, Neutrophils # (Auto) 3.5, Lymphocytes # (Auto) 2.6, Monocytes # (Auto) 0.4, Eosinophils # (Auto) 0.1, Basophils # (Auto) 0.0, Immature Granulocyte # (Auto) 0.0, Sodium Level 137, Potassium Level 3.7, Chloride Level 107, Carbon Dioxide Level 21, Anion Gap 9, Blood Urea Nitrogen 14, Creatinine 0.69, Estimat Glomerular Filtration Rate 83, BUN/Creatinine Ratio 20, Glucose Level 84, Calcium Level 8.6, Corrected Calcium 9.0, Total Bilirubin 0.5, Aspartate Amino Transf (AST/SGOT) 44H, Alanine Aminotransferase (ALT/SGPT) 19, Alkaline Phosphatase 83, Troponin I 6.177*H, Total Protein 6.4, Albumin 3.5 04/22/21 04:50: White Blood Count 4.6, Red Blood Count 3.58L, Hemoglobin 11.1L, Hematocrit 34L, Mean Corpuscular Volume 94, Mean Corpuscular Hemoglobin 31, Mean Corpuscular Hemoglobin Concent 33, Red Cell Distribution Width 13.6, Platelet Count 138, Mean Platelet Volume 12.5H, Immature Granulocyte % (Auto) 0, Neutrophils (%) (Auto) 49, Lymphocytes (%) (Auto) 38, Monocytes (%) (Auto) 9, Eosinophils (%) (Auto) 3, Basophils (%) (Auto) 1, Neutrophils # (Auto) 2.2, Lymphocytes # (Auto) 1.8, Monocytes # (Auto) 0.4, Eosinophils # (Auto) 0.1, Basophils # (Auto) 0.1, Immature Granulocyte # (Auto) 0.0, Sodium Level 138, Potassium Level 4.3, Chloride Level 108H, Carbon Dioxide Level 19L, Anion Gap 11, Blood Urea Nitrogen 16, Creatinine 0.76, Estimat Glomerular Filtration Rate 75, BUN/Creatinine Ratio 21, Glucose Level 101, Calcium Level 8.5, Corrected Calcium 9.1, Total Bilirubin 0.5, Aspartate Amino Transf (AST/SGOT) 38H, Alanine Aminotransferase (ALT/SGPT) 18, Alkaline Phosphatase 76, Troponin I 4.904*H, Total Protein 6.0L, Albumin 3.3, Triglycerides Level 70, Cholesterol Level 163, LDL Cholesterol Direct 89, VLDL Cholesterol 14, HDL Cholesterol 56 Pending Labs Laboratory Tests 04/21/21 13:08: White Blood Count 6.6, Red Blood Count 3.70, Hemoglobin 11.5, Hematocrit 35, Mean Corpuscular Volume 94, Mean Corpuscular Hemoglobin 31, Mean Corpuscular Hemoglobin Concent 33, Red Cell Distribution Width 13.6, Platelet Count 167, Mean Platelet Volume 12.6, Immature Granulocyte % (Auto) 0, Neutrophils (%) (Auto) 53, Lymphocytes (%) (Auto) 39, Monocytes (%) (Auto) 6, Eosinophils (%) (Auto) 1, Basophils (%) (Auto) 1, Neutrophils # (Auto) 3.5, Lymphocytes # (Auto) 2.6, Monocytes # (Auto) 0.4, Eosinophils # (Auto) 0.1, Basophils # (Auto) 0.0, Immature Granulocyte # (Auto) 0.0, Sodium Level 137, Potassium Level 3.7, Chloride Level 107, Carbon Dioxide Level 21, Anion Gap 9, Blood Urea Nitrogen 14, Creatinine 0.69, Estimat Glomerular Filtration Rate 83, BUN/Creatinine Ratio 20, Glucose Level 84, Calcium Level 8.6, Corrected Calcium 9.0, Total Bilirubin 0.5, Aspartate Amino Transf (AST/SGOT) 44, Alanine Aminotransferase (ALT/SGPT) 19, Alkaline Phosphatase 83, Troponin I 6.177, Total Protein 6.4, Albumin 3.5 04/22/21 04:50: White Blood Count 4.6, Red Blood Count 3.58, Hemoglobin 11.1, Hematocrit 34, Mean Corpuscular Volume 94, Mean Corpuscular Hemoglobin 31, Mean Corpuscular Hemoglobin Concent 33, Red Cell Distribution Width 13.6, Platelet Count 138, Mean Platelet Volume 12.5, Immature Granulocyte % (Auto) 0, Neutrophils (%) (Auto) 49, Lymphocytes (%) (Auto) 38, Monocytes (%) (Auto) 9, Eosinophils (%) ( Auto) 3, Basophils (%) (Auto) 1, Neutrophils # (Auto) 2.2, Lymphocytes # (Auto) 1.8, Monocytes # (Auto) 0.4, Eosinophils # (Auto) 0.1, Basophils # (Auto) 0.1, Immature Granulocyte # (Auto) 0.0, Sodium Level 138, Potassium Level 4.3, Chloride Level 108, Carbon Dioxide Level 19, Anion Gap 11, Blood Urea Nitrogen 16, Creatinine 0.76, Estimat Glomerular Filtration Rate 75, BUN/Creatinine Ratio 21, Glucose Level 101, Calcium Level 8.5, Corrected Calcium 9.1, Total Bilirubin 0.5, Aspartate Amino Transf (AST/SGOT) 38, Alanine Aminotransferase (ALT/SGPT) 18, Alkaline Phosphatase 76, Troponin I 4.904, Total Protein 6.0, Albumin 3.3, Triglycerides Level 70, Cholesterol Level 163, LDL Cholesterol Direct 89, VLDL Cholesterol 14, HDL Cholesterol 56 Discharge Home Medications: Active Scripts Active Protonix (Pantoprazole Sodium) 40 Mg Tablet. 40 Mg PO DAILY Aspirin EC (Aspirin) 81 Mg Tablet. 81 Mg PO DAILY Clopidogrel (Clopidogrel Bisulfate) 75 Mg Tablet 75 Mg PO DAILY Instructions to patient/family Please see electronic discharge instructions given to patient. Diagnosis/Problems Diagnosis/Problems (1) NSTEMI (non-ST elevated myocardial infarction) (2) A-fib Status: Acute TAN STANLEY DO Apr 22, 2021 09:38
--- NOTE | 2021-04-22 11:30 | Progress Note ---
DORITA CONNELLY 04/22/21 1130: Progress Note This 75 year old female with a past medical history of atrial fibrillation presented to [facility] with a chief complaint of fatigue for two week. On 04/21, She began to have worsening chest pain and was found to have an elevated troponin. Patient was transferred to [facility] for an NSTEMI. Dr. Cherry, cardiology, was consulted and did an emergency catheterization and patient was found to have LAD artery stenosis. Dr. Cherry inserted a stent into the LAD artery. Patient was found to be intolerant of beta-blockers, having an episode of bradycardia after receiving lopressor. Patient stayed overnight and on 04/22 her clinical condition was much improved. Dr. Cherry noted that on her loop recorder she had not had any episodes of atrial fibrillation, and she was switched from eliquis to aspirin and plavix for anticoagulation. She was cleared for discharge by cardiology on 04/22. Patient is to rest for the next 7 days with no working. Patient is to follow up with Dr. Martinez next Wednesday (04/29). Patient is to follow up with Dr. Cherry in two to four weeks. MELA MARTINEZ DO 04/23/21 0515: Supervisory-Addendum Brief Verification & Attestation Participated in pt care: history, MDM, physical Personally performed: exam, history, MDM, supervision of care Care discussed with: Medical Student Procedures: n/a Results interpretation: Verified all documentation Verification and Attestation of Medical Student E/M Service A medical student performed and documented this service in my presence. I reviewed and verified all information documented by the medical student and made modifications to such information, when appropriate. I personally performed the physical exam and medical decision making. Mela Martinez, Apr 23, 2021,05:15 DORITA CONNELLY Apr 22, 2021 11:30 MELA MARTINEZ DO Apr 23, 2021 05:15
[2021-04-22 11:52] VITALS: BP 119/64
== END 2021-04-22 12:00 | disposition home or self-care (01) | DRG 247 ==
LOC: CSD 09:18
PROVIDERS: ADMIT Internal Medicine; ATTEND Internal Medicine
PROC: 027034Z Dilation of Coronary Artery, One Artery with Drug-eluting Intraluminal Device, Percutaneous Approach (ICD-10-PCS; principal; 2021-04-21)
PROC: 4A023N7 Measurement of Cardiac Sampling and Pressure, Left Heart, Percutaneous Approach (ICD-10-PCS; 2021-04-21)
PROC: B2111ZZ Fluoroscopy of Multiple Coronary Arteries using Low Osmolar Contrast (ICD-10-PCS; 2021-04-21)
PROC: B2151ZZ Fluoroscopy of Left Heart using Low Osmolar Contrast (ICD-10-PCS; 2021-04-21)
DX: I21.4 Non-ST elevation (NSTEMI) myocardial infarction (principal); I48.20 Chronic atrial fibrillation, unspecified; I25.10 Atherosclerotic heart disease of native coronary artery without angina pectoris; I10 Essential (primary) hypertension; E78.5 Hyperlipidemia, unspecified; I48.0 Paroxysmal atrial fibrillation; R00.2 Palpitations; I49.5 Sick sinus syndrome; Z79.01 Long term (current) use of anticoagulants; Z79.899 Other long term (current) drug therapy; Z23 Encounter for immunization
CPT/HCPCS: 36415; 80053; 80061; 84484; 85025; 85027; 93005; 93306; 93458; 94760

== ENCOUNTER → 2022-08-24 | Outpatient (CLI) | payer MEDICARE ==
[~2022-08-24] VITALS: Ht 160 cm; Wt 68.0 kg
[~2022-08-24] MED LIST changes: +ASPI-1238 PO; +CATHETER FLUSH 10 ML SYR IVP PRN; +CLOP75TA28 PO; +PANT40TA2 PO; +REGADENOSON 0.4 MG/5 ML SYR (LEXISCAN) IV ONE
[2022-08-24 09:10] VITALS: BP 148/69
--- NOTE | 2022-08-24 11:58 | Cardiology Stress Test Report ---
Stress Test Report Date of Procedure/Referring: Date of Procedure: Aug 24, 2022 PCP Mela Martinez DO Admitting Physician Admitting Physician: Attending Physician: Kate Escobedo Baseline Heart Rate: 47 Baseline Blood Pressure: Blood Pressure Systolic: 148 Blood Pressure Diastolic: 69 Baseline Vitals Vital Signs Date Time Temp Pulse Resp B/P (MAP) Pulse Ox O2 Delivery O2 Flow Rate FiO2 08/24/22 09:10 47 148/69 (95) Baseline EKG: Baseline EKG: NSR Summary After explaining the procedure to the patient, she signed a consent and then brought to the stress nuclear laboratory. Patient received 0.4 mg Lexiscan for stress test, ECG, heart rate and blood pressure were monitored continuously. Resting and stress dose of radio tracer were injected, imaging was acquired and reviewed in short axis, horizontal long axis and vertical long axis views. TID: 1.07 SSS: 1 SDS: 1 EF: 76 Baseline sinus bradycardia persisted during test Patient tolerated Lexiscan well No ischemia or infarction noted on SPECT images Normal left ventricular size, ejection fraction 76% Copy Copies To 1: MELA MARTINEZ BASHAR J MD Aug 24, 2022 11:58
== END ==
LOC: CARD 07:36
PROVIDERS: ATTEND Physician Assistant
DX: I48.91 Unspecified atrial fibrillation (principal)
CPT/HCPCS: 78452; 93017; A9502